=== PATIENT | male | born 1995 | race Caucasian/White ===

== ENCOUNTER 2023-01-08 12:04 | Outpatient (CLI) | payer BC, SELFPAY ==
--- NOTE | 2023-01-08 13:28 | XR_ITS ---
WS: [id number] Chest 2 views, 01/08/2023 Clinical Data: PLEURODYNIA Comparison: None. Findings: No nodules, masses or effusions are seen. The heart is normal. The pulmonary vascularity is not increased. No pneumonia or pneumothorax is seen. XR/XR chest 2V* [id number] Impression: Negative chest.
== END 2023-01-08 12:05 | disposition home or self-care (01) ==
PROVIDERS: PCP Nurse Practitioner Family; Visit Provider Nurse Practitioner Family
DX: R07.81 Pleurodynia (principal); F12.90 Cannabis use, unspecified, uncomplicated
CPT/HCPCS: 71046

== ENCOUNTER 2024-04-22 21:15 | Emergency (ER) | payer BC, SELFPAY ==
[2024-04-22 21:30] VITALS: BP 141/77; PULSE 110; RESP 22; TEMP 39.4; O2SAT 97
--- NOTE | 2024-04-22 21:47 | XRR_ITS ---
PROCEDURE INFORMATION: Exam: XR Chest Exam date and time: 04/22/2024 9:50 PM Age: 28 years old Clinical indication: Fever; Additional info: Fever, tachy TECHNIQUE: Imaging protocol: Radiologic exam of the chest. Views: 1 view. COMPARISON: CR XR chest 2V* [id number] 01/08/2023 1:33 PM FINDINGS: Lungs: Unremarkable. No consolidation. Pleural spaces: Unremarkable. No pleural effusion. No pneumothorax. Heart/Mediastinum: Unremarkable. No cardiomegaly. Bones/joints: Unremarkable. XR/XR chest 1V portable [id number] IMPRESSION: No acute findings.
--- NOTE | 2024-04-22 21:47 | ECG_ITS ---
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 Measurements Intervals [place] Rate: 97 P: 53 NE: 157 QRS: 24 QRSD: 91 T: 28 QT: 361 QTc: 459 Interpretive Statements SINUS RHYTHM No previous ECG available for comparison Electronically Signed On 04-23-2024 6:38:02 CDT by Michelle Gonzalez M.D. [id number]
[2024-04-22 22:10] LABS: Basophils % 0.4 %; Eosinophils # 0.1 10^3/uL (0.0-0.8); Eosinophils % 0.6 %; Hematocrit 43.4 % (37-53); Lymphocytes # 0.3 10^3/uL (0.8-4.8); Lymphocytes % 2.8 %; Mean Corpuscular HGB Conc 34.1 g/dL (30-55); Mean Corpuscular Hemoglobin 28.8 pg (27-33); Mean Corpuscular Volume 84.4 fl (82-101); Mean Platelet Volume 9.7 fL (7.4-10.4); Monocytes # 0.9 10^3/uL (0.2-0.9); Monocytes % 9.5 %; Neutrophils # 7.91 10^3/uL (1.8-7.7); Neutrophils % 85.7 %; Nucleated Red Blood Cells % 0 %; Platelet Count 218 10^3/cmm (157-399); Red Blood Count 5.14 10^6/uL (3.85-5.65); Red Cell Distribution Width 13.2 % (12.1-15.1); White Blood Count 9.24 10^3/uL (3.29-11.43)
[2024-04-22] MEDS: ondansetron 2 mg/ML SDV 2 mL 4 MG IVP (22:22)
[2024-04-22] MEDS: acetaminophen 500 mg Tablet 1000 MG PO (22:22)
[2024-04-22] MEDS: sodium chloride 0.9% 1,000 ML 999 ML IV ×2 (22:22→23:36)
[2024-04-22 22:31] LABS: Alanine Aminotransferase 29 U/L (0-41); Albumin Level 3.9 g/dL (3.5-5.2); Alkaline Phosphatase 71 U/L (40-130); Anion Gap 17.6 (5-19); Aspartate Amino Transferase 20 U/L (0-40); Blood Urea Nitrogen 16 mg/dL (6-20); C Reactive Protein 12.3 mg/L (0.0-4.9); Calcium 8.8 mg/dL (8.5-10.5); Carbon Dioxide 23 mmol/L (22-29); Chloride 101 mmol/L (98-107); Creatine Phosphokinase 169 U/L (39-308); Creatinine Clr Calc Pharmacy 203.1384; Globulin 3.2 g/dL (1.3-4.6); Glomerular Filtration Rate 101.2 mL/min (90-130); Glucose 111 mg/dL (65-115); Osmolality Calculated 288 mOsm/kg (285-295); Potassium 3.6 mmol/L (3.5-5.1); Sodium 138 mmol/L (136-145); Total Bilirubin 0.5 mg/dL (0.15-1.2); Total Protein 7.1 g/dL (6.6-8.7)
[2024-04-22 22:32] LABS: Lactic Sepsis W/Reflex 1.5 mmol/L (0.5-2.2)
--- NOTE | 2024-04-22 22:57 | W.ED.HA ---
HPI - Headache General: Chief Complaint: Headache Stated Complaint: n/v weakness believes heat exhaustion Time Seen by Provider: 04/22/24 21:45 Source: patient Mode of arrival: ambulatory Limitations: no limitations History of Present Illness: Patient is a 28-year-old male who presents to the emergency department complaining of nausea and vomiting onset this afternoon. Patient states he was working outside in the heat, believes he got exhausted as he had sudden onset of the symptoms associated with weakness, headache, and overall fatigue. He has never had the symptoms before and states he has been drinking water adequately. On arrival he is noted to be tachycardic with a fever of 102.9, however is satting 97 to 100% on room air. He does appear diaphoretic at bedside. Currently he is also stating of some diffuse joint pain, however states his headache, lightheadedness, and dizziness have all gotten better. No other symptoms or pertinent historical factors to report at this time. MD elicited complaint: headache Onset (ago): hour(s) Onset description: suddenly Exacerbating factors: exertion (Possible heat exhaustion) Relieving factors: rest Context: occurred with exertion/activity Associated symptoms: Reports diaphoresis, fever(s), lightheadedness, nausea and vomiting; Deny chest pain or rash Review of Systems General: Reports: 10 or more systems reviewed and unremarkable except in HPI and below Const: Reports: fever(s), fatigue and diaphoresis; Denies: chills Eyes: Denies: change in vision ENMT: Denies: throat pain, ear or mastoid pain or nasal discharge Card: Reports: lightheadedness; Denies: chest pain, palpitations or swelling of feet/ankles Resp: Denies: dyspnea, productive cough or wheezing GI: Reports: nausea and vomiting; Denies: abdominal pain, diarrhea or constipation : Denies: flank pain, difficulty urinating, dysuria or urinary frequency Musc: Reports: joint pain and muscle weakness; Denies: neck pain or back pain Skin/Breast: Denies: rash Neuro: Reports: dizziness; Denies: headache(s) or numbness in extremities PFS ED PFSH: Medical History Chest pain Physical Exam Const: COMMON NORMALS: no acute distress, patient oriented x3 and no limitations GENERAL APPEARANCE: cooperative, well developed and diaphoretic NUTRITIONAL APPEARANCE: obese morbidly obese ORIENTATION/CONSCIOUSNESS: Yes awake, Yes oriented to person, Yes oriented to place and Yes oriented to time HENMT: COMMON NORMALS: normocephalic, atraumatic and hearing grossly normal bilaterally HEAD & SCALP: normocephalic and atraumatic Eye: COMMON NORMALS: Equal, round and reactive pupils present, EOMs intact bilaterally and conjunctivae normal CONJUNCTIVA: Yes conjunctivae normal PUPIL: Yes Equal, round and reactive pupils present Neck/C-Spine: COMMON NORMALS: full ROM, supple and no JVD Chest: COMMONS NORMALS: normal inspection of the chest and normal palpation of entire chest wall Resp: COMMON NORMALS: No retractions, No use of accessory muscles and clear to auscultation bilaterally EFFORT & INSPECTION: Yes tachypneic AUSCULTATION: clear to auscultation bilaterally Cardio: COMMON NORMALS: no JVD, regular rhythm, No clicks present (Cardio), No murmurs present (Cardio) and No rub (Cardio) RATE: tachycardic RHYTHM: regular rhythm GI: COMMON NORMALS: Normal to inspection, nondistended, normoactive bowel sounds present, Soft to palpation and non-tender INSPECTION: Yes central obesity AUSCULTATION: Yes normoactive bowel sounds PALPATION: Yes Soft to palpation RECTAL EXAM: Yes deferred Extremity: COMMON NORMALS: normal to inspection, full ROM and capillary refill normal Neuro: COMMON NORMALS: patient oriented x3, CN's II-XII intact bilaterally, moves all extremities, no focal motor deficits and no sensory deficits noted SENSORIUM/ORIENTATION: Yes oriented to person, Yes oriented to place and Yes oriented to time Psych: COMMON NORMALS: mental status grossly normal and Normal thought process present THOUGHT PROCESS: Normal thought process present Skin: COMMON NORMALS: no rashes or lesions noted GENERAL SKIN EXAM: no rashes or lesions noted Course Vital Signs: Vital signs: Vital Signs Temperature 98.8 F 04/22/24 23:19 Pulse Rate 110 H 04/22/24 21:30 Respiratory Rate 22 H 04/22/24 21:30 Blood Pressure 141/77 04/22/24 21:30 Pulse Oximetry 97 04/22/24 21:30 Oxygen Delivery Me thod Room Air 04/22/24 21:30 MDM - Headache Medical Decision Making Patient arrived for signs and symptoms of heat exhaustion, stating at work he had sudden onset of nausea and vomiting as well as overall weakness and fatigue. On arrival he was found to be tachycardic as well as febrile with a temp of 102.9. He was noted to be diaphoretic on exam, however rest of his physical exam unremarkable. Chest x-ray obtained did not demonstrate any acute findings. His CBC unremarkable. D-dimer was negative, no need to further pursue PE at this time. No sign of acute kidney injury and his creatinine kinase was normal. Urinalysis negative. CRP minimally elevated, however nondiagnostic. EKG was obtained showing normal sinus rhythm rate of 94, patient's elevated heart rate throughout the ED course likely secondary to dehydration. He is given 2 L of fluids as well as Zofran, and upon recheck afterwards states he feels much better. Do believe patient dealing with heat exhaustion secondary to severe dehydration, and did instruct him to continue plenty of fluids at home. He will be given work day off tomorrow for him to recuperate, and return precautions were given. Patient's case discussed with Dr. Castro who agrees with disposition at this time. Lab Data 04/22/24 22:01 04/22/24 22:01 Radiology Impressions Chest X-Ray 04/22/24 21:47 IMPRESSION: No acute findings. Laboratory Results WBC 9.24 10^3/uL (3.29-11.43) 04/22/24 22:01 RBC 5.14 10^6/uL (3.85-5.65) 04/22/24 22:01 Hgb 14.80 g/dL (11.27-16.99) 04/22/24 22:01 Hct 43.4 % (37-53) 04/22/24 22:01 MCV 84.4 fl (82-101) 04/22/24 22:01 MCH 28.8 pg (27-33) 04/22/24 22: MCHC 34.1 g/dL (30-55) 04/22/24 22:01 RDW 13.2 % (12.1-15.1) 04/22/24 22:01 Plt Count 218 10^3/cmm (157-399) 04/22/24 22:01 MPV 9.7 fL (7.4-10.4) 04/22/24 22:01 Neut % (Auto) 85.7 % 04/22/24 22:01 Lymph % (Auto) 2.8 % 04/22/24 22:01 [place] % (Auto) 9.5 % 04/22/24 22:01 Eos % (Auto) 0.6 % 04/22/24 22:01 Baso % (Auto) 0.4 % 04/22/24 22:01 Neut # (Auto) 7.91 10^3/uL (1.8-7.7) H 04/22/24 22:01 Lymph # (Auto) 0.3 10^3/uL (0.8-4.8) L 04/22/24 22:01 [place] # (Auto) 0.9 10^3/uL (0.2-0.9) 04/22/24 22:01 Eos # (Auto) 0.1 10^3/uL (0.0-0.8) 04/22/24 22:01 Baso # (Auto) 0.0 10^3/uL (0.0-0.1) 04/22/24 22:01 Nucleated RBC % (auto) 0 % 04/22/24 22:01 Nucleated RBCs # 0.0 /100WBC 04/22/24 22:01 D-Dimer 0.35 ug/mLFEU (0-0.59) 04/22/24 23:01 Sodium 138 mmol/L (136-145) 04/22/24 22:01 Potassium 3.6 mmol/L (3.5-5.1) 04/22/24 22:01 Chloride 101 mmol/L (98-107) 04/22/24 22:01 Carbon Dioxide 23 mmol/L (22-29) 04/22/24 22:01 Anion Gap 17.6 (5-19) 04/22/24 22:01 BUN 16 mg/dL (6-20) 04/22/24 22:01 Creatinine 0.9 mg/dL (0.7-1.2) 04/22/24 22:01 GFR Calculation 101.2 mL/min (90-130) 04/22/24 22:01 Glucose 111 mg/dL (65-115) 04/22/24 22:01 Calculated Osmolality 288 mOsm/kg (285-295) 04/22/24 22:01 Lactic Acid 1.5 mmol/L (0.5-2.2) 04/22/24 22:01 Calcium 8.8 mg/dL (8.5-10.5) 04/22/24 22:01 Total Bilirubin 0.5 mg/dL (0.15-1.2) 04/22/24 22:01 AST 20 U/L (0-40) 04/22/24 22:01 ALT 29 U/L (0-41) 04/22/24 22:01 Alkaline Phosphatase 71 U/L (40-130) 04/22/24 22:01 Creatine Kinase 169 U/L (39-308) 04/22/24 22:01 C-Reactive Protein 12.3 mg/L (0.0-4.9) H 04/22/24 22:01 Total Protein 7.1 g/dL (6.6-8.7) 04/22/24 22:01 Albumin 3.9 g/dL (3.5-5.2) 04/22/24 22:01 Globulin 3.2 g/dL (1.3-4.6) 04/22/24 22:01 Urine Color Yellow (Yellow) 04/22/24 22:50 Urine Appearance Clear (CLEAR) 04/22/24 22:50 Urine pH 8.5 (5-7) A 04/22/24 22:50 Ur Specific [place] 1.019 (1.005-1.030) 04/22/24 22:50 Urine Protein Negative (Negative) 04/22/24 22:50 Urine Glucose (UA) Negative (Normal) 04/22/24 22:50 Urine Ketones Negative (Negative) 04/22/24 22:50 Urine Blood Negative (Negative) 04/22/24 22:50 Urine Nitrate Negative (Negative) 04/22/24 22:50 Urine Bilirubin Negative (Negative) 04/22/24 22:50 Urine Urobilinogen 1.0 mg/dL (Negative) 04/22/24 22:50 Ur Leukocyte Esterase Negative (Negative) 04/22/24 22:50 Amorphous Sediment Not Reportable 04/22/24 22:50 All radiology interpretation(s) finalized by discharge Discharge Plan Discharge Patient Disposition: Home Clinical Impression: Heat exhaustion Qualifiers: Encounter type: initial encounter Qualified Code(s): T67.5XXA - Heat exhaustion, unspecified, initial encounter Condition: Stable Prescriptions: No Action diphenhydramine HCl [[place] Plus Allergy] 25 mg tablet 25 mg PO TID PRN Discharge Orders: Discharge ED (Routine); Ordered 04/23/24 Ordered By: Andrew Ramsey Referrals: Yoalnda Diggs, HEMATOLOGY TECHNICIAN [Primary Care Provider] - Discharge Diet: Usual diet Discharge Activity: Increase activity as tolerated Patient Instructions: Heat Exhaustion (ED) Activity Restrictions/Additional Instructions: Please avoid excessive heat exposure, use work note is provided. Plenty of fluids at home. Tylenol and ibuprofen for any body aches or fevers. If you develop any new or concerning symptoms please return for reevaluation. Otherwise follow-up with primary care as needed. 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
[2024-04-22 23:00] LABS: Charge for UA Resulting for Rev
[2024-04-22 23:04] LABS: Bilirubin Urine Negative (Negative); Blood Urine Negative (Negative); Glucose Urine UA Negative (Normal); Ketones Urine Negative (Negative); Leukocyte Esterase Urine Negative (Negative); Nitrate Urine Negative (Negative); Protein Urine Negative (Negative); Specific Gravity, Urine 1.019 (1.005-1.030); Urine Appearance Clear (CLEAR); Urine Color Yellow (Yellow); pH Urine 8.5 (5-7)
[2024-04-22 23:19] VITALS: TEMP 37.1
[2024-04-22 23:30] VITALS: PULSE 93; RESP 24; O2SAT 98
[2024-04-22 23:57] LABS: D Dimer 0.35 ug/mLFEU (0-0.59)
[2024-04-23 00:43] VITALS: PULSE 95; RESP 20; O2SAT 97
[2024-04-23 00:43] LABS: Adenovirus Not Detected (NOT DETECT); Chlamydia Pneumoniae Not Detected (NOT DETECT); Coronavirus 229E,HKU1,NL63,OC4 Not Detected (NOT DETECT); Human Metapneumovirus Not Detected (NOT DETECT); Human Rhinovirus/Enterovirus Not Detected (NOT DETECT); Influenza A Not Detected (NOT DETECT); Influenza A H1 Not Detected (NOT DETECT); Influenza A H1-2009 Not Detected (NOT DETECT); Influenza A H3 Not Detected (NOT DETECT); Influenza B Not Detected (NOT DETECT); Mycoplasma Pneumoniae Not Detected (NOT DETECT); Parainfluenza Virus Type 1 Not Detected (NOT DETECT); Parainfluenza Virus Type 2 Not Detected (NOT DETECT); Parainfluenza Virus Type 3 Not Detected (NOT DETECT); Parainfluenza Virus Type 4 Not Detected (NOT DETECT); Respiratory Syncytial Virus A Not Detected (NOT DETECT); Respiratory Syncytial Virus B Not Detected (NOT DETECT)
[2024-04-23 00:45] VITALS: PULSE 95; RESP 20; O2SAT 98
[2024-04-23 00:47] LABS: SARS-COV-2 Detected (NOT DETECT)
--- NOTE | 2024-04-23 00:51 | PC.NURSE ---
Pt notified of results of Respiratory Panel. Pt was covid positive.
== END 2024-04-23 00:46 | disposition home or self-care (01) ==
PROVIDERS: Emergency Provider Physician Assistant; PCP Nurse Practitioner Family
DX: T67.5XXA Heat exhaustion, unspecified, initial encounter (principal); X30.XXXA Exposure to excessive natural heat, initial encounter
CPT/HCPCS: 36415; 71045; 80053; 81003; 81015; 82550; 83605; 85025; 85378; 86140; 87040; 87486; 87581; 87633; 93005; 96361; 96374; 99285; J2405; J7030